=== PATIENT | male | born 2005 | race Caucasian/White ===

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

== ENCOUNTER 2024-04-04 19:41 | Emergency (ER) | payer OTHER ==
[~2024-04-04] VITALS: Ht 182.9 cm; Wt 72.6 kg
[2024-04-04 19:45] VITALS: BP 130/71
[2024-04-04] MEDS ORDERED: Ondansetron 4 MG SoluTab SL ONE (20:00)
== END 2024-04-04 22:19 | disposition home or self-care (01) ==
LOC: ER 19:41
DX: M25.512 Pain in left shoulder (principal); W51.XXXA Accidental striking against or bumped into by another person, initial encounter; Y93.72 Activity, wrestling
CPT/HCPCS: 73030; A9270